=== PATIENT | male | born 1960 | race Caucasian/White ===

== ENCOUNTER → 2020-08-07 07:39 | Outpatient (CLI) | payer OTHER, SELFPAY ==
--- NOTE | ~2020-08-07 | US_ITS ---
EXAMINATION: US abdomen limited DATE: 08/07/2020 08:14 INDICATION: Abnormal liver function tests. TECHNIQUE: Multiple grayscale and Doppler ultrasound images of the abdomen were obtained. COMPARISON: None FINDINGS: The visualized portions of the head, body, and tail of the pancreas are normal. There is di ffuse hepatic steatosis. No liver surface nodularity. There is a 10 mm cyst in the liver. There is no rmal flow in main portal vein. The gallbladder is normal in size and contains a gallstone. No gallbla dder wall thickening or sonographic Davenport sign. The common duct is normal and measures 4 mm. IMPRESSION: 1. Diffuse hepatic steatosis. 2. Cholelithiasis. No evidence of acute cholecystitis. Reviewed, dictated and finalized at location A.
== END ==
PROVIDERS: PCP Internal Medicine; Visit Provider Clinical Nurse Specialist
DX: R74.01 Elevation of levels of liver transaminase levels (principal); K76.0 Fatty (change of) liver, not elsewhere classified; K80.20 Calculus of gallbladder without cholecystitis without obstruction
CPT/HCPCS: 76705

== ENCOUNTER 2022-05-05 09:19 | Outpatient (CLI) | payer MEDICARE, SELFPAY ==
[2022-05-05 19:50] LABS: Basophils Absolute Auto 0.1 K/mm3 (0.0-0.1); Basophils Percent Auto 0.9 % (0.2-1.2); Eosinophils Absolute Auto 0.3 K/mm3 (0-0.3); Hematocrit 45.4 % (42.0-52.0); Hemoglobin 15.5 g/dL (14.0-18.0); Immature Granulocyte Absolute 0.01 K/mm3 (0.00-0.031); Immature Granulocyte Percent A 0.2 % (0-0.5); Lymphocytes Absolute Auto 1.53 K/mm3 (0.9-3.2); Lymphocytes Percent Auto 28.5 % (18.3-44.2); Mean Corpuscular HGB Conc 34.1 g/dl (32-36); Mean Corpuscular Volume 84.9 fl (80-100); Mean Platelet Volume 10.7 fl (7.4-10.4); Monocytes Absolute Auto 0.5 K/mm3 (0.1-0.6); Monocytes Percent Auto 8.8 % (2.6-8.5); Neutrophils Percent Auto 56.6 % (45.5-73.1); Platelet Count Result 218 k/mm3 (150-375); Red Blood Count 5.35 M/mm3 (4.6-6.20); Red Cell Distribution Width 12.2 % (11.5-14.5); White Blood Count 5.4 K/mm3 (4.5-10.0)
[2022-05-05 20:00] LABS: Alanine Aminotransferase 33 U/L (6-50); Albumin Level 4.2 g/dL (3.5-5.1); Alkaline Phosphatase 57 U/L (38-126); Anion Gap 6 mmol/L (8-16); Aspartate Amino Transferase 34 U/L (17-59); Bilirubin,Total 0.7 mg/dL (0.2-1.3); Blood Urea Nitrogen 17 mg/dL (9-20); Calcium 8.8 mg/dL (8.4-10.2); Carbon Dioxide 31 mmol/L (22-30); Chloride 103 mmol/L (98-107); Cholesterol 156 mg/dL (0-200); Estimated Glomerular Filt Rate > 60; Glucose 85 mg/dL (65-110); HDL Direct 48 mg/dL; Potassium 4.2 mmol/L (3.4-5.0); Sodium 140 mmol/L (137-145); Triglycerides 78 mg/dL (<150)
[2022-05-05 20:11] LABS: LDL Cholesterol Direct 74 mg/dL
[2022-05-05 20:29] LABS: Prostate Specific Antigen 2.5 ng/mL (< OR = 4.0)
== END 2022-05-05 09:20 | disposition home or self-care (01) ==
LOC: ANHGOSHLAB 09:21
PROVIDERS: PCP Internal Medicine; Visit Provider Nurse Practitioner
DX: R20.0 Anesthesia of skin (principal); R20.2 Paresthesia of skin; Z12.5 Encounter for screening for malignant neoplasm of prostate; Z13.220 Encounter for screening for lipoid disorders
CPT/HCPCS: 36415; 80053; 80061; 82728; 84153; 84443; 85025; G0103

== ENCOUNTER 2022-06-29 00:34 | Day surgery (SDC) | payer MEDICARE, SELFPAY ==
[2022-06-13 11:56] VITALS: BMI 28.3
[2022-06-29 07:24] VITALS: BP 101/81; PULSE 100; RESP 18; TEMP 36.1; O2SAT 100
[2022-06-29] MEDS: LACTATED RINGERS 1,000 ML 150 ML IV CONT (07:45)
--- NOTE | 2022-06-29 08:17 | WPDANESEPPF ---
Anes - Initial Pre Proc Eval Procedure: Operation Date: 06/29/22 08:30 Proposed Procedures p Screening Colonoscopy - Param Dumont MD Date/Time: 06/29/22 08:17 Surgeon: Param Dumont MD Pre Op Diagnosis: neoplasm screening Patient Data Age: 61 Gender: M Height: 1.88 m Weight: 99.6 kg Last Vital Signs Temp 97 F L 06/29/22 07:24 Pulse 100 06/29/22 07:24 Resp 18 06/29/22 07:24 BP 101/81 06/29/22 07:24 Pulse Ox 100 06/29/22 07:24 O2 Del Method Room Air 06/29/22 07:24 Allergies Allergy/AdvReac Type Severity Reaction Status Date / Time chlorhexidine AdvReac Mild Rash Verified 06/29/22 07:23 [From ChloraPrep Clear] isopropyl alcohol AdvReac Mild Rash Verified 06/29/22 07:23 [From ChloraPrep Clear] Home Medications Medication Instructions Recorded Confirmed Type albuterol sulfate 90 mcg/actuation 2 inhalation inhalation Q4-6H PRN 04/29/19 06/29/22 History breath activated powder inhaler Shortness Of Breath (ProAir RespiClick) misoprostol 100 mcg tablet 100 mcg PO QID #360 tabs 09/09/21 06/29/22 Rx celecoxib 200 mg capsule (Celebrex) 200 mg PO DAILY #90 caps 12/21/21 06/29/22 Rx ascorbic acid (vitamin C) 1,000 mg 1 g PO DAILY 05/12/22 06/29/22 History capsule elderberry fruit 350 mg capsule 350 mg PO DAILY 05/12/22 06/29/22 History fluticasone propionate 50 2 spray intranasal DAILY PRN 05/12/22 06/29/22 History mcg/actuation nasal Allergy Symptoms spray,suspension (Flonase Allergy Relief) Patient hx anesthesia problems: none Family hx anesthesia problems: none Results Review: All pre-operative results and documents have been reviewed as part of the pre-operative evaluation. [facility] Past Medical History Medical History (Updated 05/12/22 @ 09:20 by Esther Son NP) Allergies Anxiety Arthralgia COPD (chronic obstructive pulmonary disease) Dizziness Insomnia Lipoma removed 2021 from left knee Lipoma of back removed spring 2021 Overweight Rotator cuff tear Left 2008 Vertigo Surgical History Surgical History H/O arthroscopic knee surgery Right 2002 H/O foot surgery History of carpal tunnel release 2010 History of hand surgery S/P hip arthroscopy Left 2004 Family History Family History Father Diabetes mellitus Mother Family history of Alzheimer's disease Social History Social History (Updated 05/12/22 @ 08:37 by Brittany Salazar CMA) Social History: Caffeine-none Smoking status: Former smoker Smoking end date: 05/01/82 Alcohol intake: current Drinks per week: 4 Alcohol use details: Pt drinks occasionally. Substance use type: does not use Lack of Transportation: No Lack of Food: Never True Current Housing: I Have Housing Concerned About Future Housing: No Difficulty Paying Gas/Electric Bills: No Difficulty Paying for Meds: No Currently Unemployed: No Education: Trade/Vocational Certificate Difficulty w/ Childcare or Family Care: No Living arrangements: with family Spiritual care concerns: No Anes - Eval Final PreProcedure Day of Procedure 06/29/22 08:17 Patient weight: normal Heart: regular rate and rhythm Lungs: clear to auscultation Airway: Mallampati scale class II Neurological: alert and oriented Last oral intake: >/= 8 hours ASA classification: II Emergent: no Anesthetic plan: proceed Anesthesia type and monitoring: general GIVS and standard monitoring Results Review: All pre-operative results and documents have been reviewed as part of the pre-operative evaluation. Informed Consent: The patient's anesthetic plan and its attendant risks and benefits were discussed with the patient/family/POA. Questions were solicited and answers provided to the satisfaction of the patient/family/POA.
--- NOTE | 2022-06-29 08:21 | PM.HPGS ---
History of Present Illness History of Present Illness Consent: Risks, benefits, and alternatives have been discussed and questions answered. Patient agrees to proceed with procedure. Chief complaint: neoplasm screening Narrative: Anish Nolasco Jr. is a 61 year old male with last screening colonoscopy 10 years ago Review of Systems Constitutional: Constitutional: Denies headache(s) and Denies weakness Eyes: Eyes: Denies blurry vision ENT: Reports Normal hearing present, Denies headache(s) and Denies neck pain Cardiovascular: Cardiovascular: Denies chest pain and Denies dyspnea Respiratory: Respiratory: Denies dyspnea Gastrointestinal: Gastrointestinal: Reports no additional gastrointestinal complaints Genitourinary: Genitourinary: Denies dysuria Musculoskeletal: Musculoskeletal: Denies neck pain Integumentary/Breasts: Skin/Breast: Denies dry skin Neurologic: Reports Normal hearing present, Denies headache(s) and Denies weakness Psychiatric: Psychiatric: Denies anxiety Endocrine: Endocrine: Denies change in body appearance Hematologic/Lymphatic: Hematologic/Lymphatic: Denies easy bleeding Allergic/Immunologic: Allergic/Immunologic: Denies urticaria PMFSH Past Medical History Medical History (Updated 05/12/22 @ 09:20 by Esther Son NP) Allergies Anxiety Arthralgia COPD (chronic obstructive pulmonary disease) Dizziness Insomnia Lipoma removed 2021 from left knee Lipoma of back removed spring 2021 Overweight Rotator cuff tear Left 2008 Vertigo Surgical History Surgical History H/O arthroscopic knee surgery Right 2002 H/O foot surgery History of carpal tunnel release 2010 History of hand surgery S/P hip arthroscopy Left 2004 Family History Family History Father Diabetes mellitus Mother Family history of Alzheimer's disease Social History Social History (Updated 05/12/22 @ 08:37 by Brittany Salazar [facility]) Social History: Caffeine-none Smoking status: Former smoker Smoking end date: 05/01/82 Alcohol intake: current Drinks per week: 4 Alcohol use details: Pt drinks occasionally. Substance use type: does not use Lack of Transportation: No Lack of Food: Never True Current Housing: I Have Housing Concerned About Future Housing: No Difficulty Paying Gas/Electric Bills: No Difficulty Paying for Meds: No Currently Unemployed: No Education: Trade/Vocational Certificate Difficulty w/ Childcare or Family Care: No Living arrangements: with family Spiritual care concerns: No Meds Home Medications and Allergies Home Medications Medication Instructions Recorded Confirmed Type albuterol sulfate 90 mcg/actuation 2 inhalation inhalation Q4-6H PRN 04/29/19 06/29/22 History breath activated powder inhaler Shortness Of Breath (ProAir RespiClick) misoprostol 100 mcg tablet 100 mcg PO QID #360 tabs 09/09/21 06/29/22 Rx celecoxib 200 mg capsule (Celebrex) 200 mg PO DAILY #90 caps 12/21/21 06/29/22 Rx ascorbic acid (vitamin C) 1,000 mg 1 g PO DAILY 05/12/22 06/29/22 History capsule elderberry fruit 350 mg capsule 350 mg PO DAILY 05/12/22 06/29/22 History fluticasone propionate 50 2 spray intranasal DAILY PRN 05/12/22 06/29/22 History mcg/actuation nasal Allergy Symptoms spray,suspension (Flonase Allergy Relief) Allergies Allergy/AdvReac Type Severity Reaction Status Date / Time chlorhexidine AdvReac Mild Rash Verified 06/29/22 07:23 [From ChloraPrep Clear] isopropyl alcohol AdvReac Mild Rash Verified 06/29/22 07:23 [From ChloraPrep Clear] Vital Signs Vital Signs - 24 hr 06/29/22 07:24 Temperature 97 F L Pulse Rate 100 Respiratory Rate 18 Blood Pressure 101/81 Pulse Oximetry 100 Oxygen Delivery Room Air Exam Const: General: comfortable and no acute distress HENMT: Face/Nose/Sinus:
[2022-06-29 08:41] VITALS: BP 102/71; PULSE 79; RESP 18; O2SAT 100
[2022-06-29 08:51] VITALS: BP 106/72; PULSE 80; RESP 18; O2SAT 100
[2022-06-29 09:01] VITALS: BP 106/78; PULSE 88; RESP 19; O2SAT 99
== END 2022-06-29 09:17 | disposition home or self-care (01) ==
PROVIDERS: PCP Internal Medicine; Visit Provider Internal Medicine Gastroenterology
PROC: 0DJD8ZZ Inspection of Lower Intestinal Tract, Via Natural or Artificial Opening Endoscopic (ICD-10-PCS; CPT 45378; principal; 2022-06-29 08:30)
DX: Z12.11 Encounter for screening for malignant neoplasm of colon (principal); K64.8 Other hemorrhoids; J44.9 Chronic obstructive pulmonary disease, unspecified; Z79.51 Long term (current) use of inhaled steroids; Z87.891 Personal history of nicotine dependence
CPT/HCPCS: G0121; J2704; J7120

== ENCOUNTER 2022-08-12 07:59 | Outpatient (CLI) | payer MEDICARE, SELFPAY ==
--- NOTE | 2022-08-29 17:57 | WPDHOMESLEEP ---
Sleep Study - Home Unattended Date of Study: 08/12/22 Ordering Provider: Nola Florence DO Interpreting Provider: Nola Florence DO Home Sleep Study Type: Watch PAT Height: 1.88 m Weight: 102.058 kg Body Mass Index: 28.8 Neck Circumference (inches): 17.5 Pope: 2 Reason for Sleep Study Daytime hypersomnia Sleep History The patient is a 61-year-old male with anxiety, arthritis, COPD, insomnia, history of tobacco use and previously diagnosed BRAXTON that had a sleep study ordered for evaluation sleep apnea. The patient denies awakening from sleep short of breath. He denies awakening at night with heartburn, belching or cough. He occasionally snores and is occasionally loud enough that others complain. He occasionally has trouble sleeping when he has a cold. He denies waking up gasping for air throughout the night. He rarely has breathing problems at night observed by himself or others. He denies sweating excessively at night. He denies having heart palpitations or irregular heartbeats during the night. He occasionally falls asleep during the day but never while driving. He denies sleep paralysis and cataplexy. He rarely has trouble at school or work due to sleepiness. He rarely experiences vivid dreamlike scenes upon awakening or falling asleep. He denies feeling afraid of going to sleep. He rarely has nightmares. He rarely remembers his dreams. He rarely has thoughts racing through his mind. He denies feeling sad, depressed or anxious. He denies having muscular tension. He denies noticing parts of his body jerk. He denies kicking during the night. He denies having crawling and aching feelings in his legs and denies having leg pain during the night. He rarely grinds his teeth during sleep and never awakens with morning jaw pain. He is rarely bothered by pain during the day and rarely awakened by pain during the night. He occasionally wakes up feeling stiff in the morning. He denies waking up with sore or achy muscles. He occasionally wakes up with pain in the neck, spine or other joints. He goes to bed at 9:30 p.m. on both weekdays and weekends. It takes him 5-10 minutes to fall asleep. He wakes up 5-7 times throughout the night for unknown reasons. He can take him anywhere from 5 minutes up to an hour to fall back asleep. He wakes up at 2:00 a.m. on both weekdays and weekends. He typically gets 7-8 hours of sleep per night. He will stay in bed for 5 minutes after waking up in morning. He currently lives with his daughter and granddaughter. He denies consuming any caffeinated beverages within 2 hours of bedtime. He denies engaging in physical exercise before bedtime. He will watch television before falling asleep. He will take naps in the afternoon or the evening and they are refreshing. He does not consume any caffeinated beverages throughout the day. He is a former smoker. He consumes 3-4 alcoholic beverages per week. He denies recreational drug use. [facility] Past Medical History Medical History Allergies Anxiety Arthralgia COPD (chronic obstructive pulmonary disease) Dizziness Insomnia Lipoma removed 2021 from left knee Lipoma of back removed spring 2021 Overweight Rotator cuff tear Left 2008 Vertigo Surgical History Surgical History H/O arthroscopic knee surgery Right 2002 H/O foot surgery History of carpal tunnel release 2010 History of hand surgery S/P hip arthroscopy Left 2004 Family History Family History Father Diabetes mellitus Mother Family history of Alzheimer's disease Social History Social History Social History: Caffeine-none Smoking status: Former smoker Smoking end date: 05/01/82 Alcohol intake: current Drinks per week: 4
[2022-08-30 17:06] VITALS: BMI 28.8
--- NOTE | 2023-03-20 15:47 | SLEEP ---
pt turned machine back in to dme
== END 2022-08-15 08:59 | disposition home or self-care (01) ==
LOC: ANHCSM 08:03
PROVIDERS: PCP Internal Medicine; Visit Provider Family Medicine
DX: G47.33 Obstructive sleep apnea (adult) (pediatric) (principal); G47.9 Sleep disorder, unspecified; Z87.891 Personal history of nicotine dependence
CPT/HCPCS: 95800

== ENCOUNTER 2023-01-04 23:34 | Inpatient (IN) | payer MEDICARE, SELFPAY ==
--- NOTE | ~2023-01-04 | XR_ITS ---
EXAMINATION: XR ERCP DATE: 01/06/2023 12:42 INDICATION: Choledocholithiasis. TECHNIQUE: 1 spot fluoroscopic image of the right upper quadrant were obtained during endoscopic retr ograde cholangiopancreatography (ERCP). Fluoroscopy exposure time was 91 seconds. COMPARISON: Cholangiogram 01/05/23 FINDINGS: The endoscope is in the second portion the duodenum. There is contrast opacification of the common duct. There are surgical clips from cholecystectomy. IMPRESSION: 1. Contrast opacification of the common duct. Please refer to the ERCP procedure note for additional details. Reviewed, dictated and finalized at location A. IMPRESSION: 1. Contrast opacification of the common duct. Please refer to the ERCP procedur e note for additional details.
--- NOTE | ~2023-01-04 | CT_ITS ---
CT of the Abdomen and Pelvis: Indication: Abnormal LFTs Technique: 2.5 mm axial scans were obtained through the abdomen and pelvis following intravenous adm inistration of 100 cc of Omnipaque 350. Dose reduction technique was used on this scan by utilizing a utomated exposure control and iterative reconstruction technique. The dose-length product (DLP) was 7 52.28 mGy-cm. Findings: Scans through the lung bases demonstrate an 8 mm somewhat tubular nodule at the left lung base, possibly focally dilated vessel. Several subcentimeter hepatic cysts are present. There is mild gallbladder wall thickening with diste nded gallbladder. The spleen, pancreas, adrenals and kidneys are within normal limits. No evidence o f aortic aneurysm. No lymphadenopathy. No bowel obstruction or bowel wall thickening. There is no evidence to suggest acute appendicitis. Images through the pelvis were performed. Urinary bladder unremarkable. Prostate gland and seminal ve sicles are unremarkable. Impression: Distended gallbladder with mild gallbladder wall thickening. Appearance suggests acute cholecystitis. Correlate clinically. Consider ultrasound and/or HIDA scan for further evaluation. Subcentimeter hepatic cysts. 8 mm somewhat tubular nodule at the left lung base, possibly a focally dilated vascular structure. Ap pearance suggests a benign lesion. Nonemergent CT angiogram could be considered to more definitively exclude small pulmonary AVM. Reviewed, dictated and finalized at [facility]. Impression: Distended gallbladder with mild gallbladder wall thickening. Appearance suggest s acute cholecystitis. Correlate clinically. Consider ultrasound and/or HIDA sc an for further evaluation. Subcentimeter hepatic cysts. 8 mm somewhat tubular nodule at the left lung base, possibly a focally dilated vascular structure. Appearance suggests a benign lesion. Nonemergent CT angiogr am could be considered to more definitively exclude small pulmonary AVM.
--- NOTE | ~2023-01-04 | XR_ITS ---
EXAMINATION: XR cholangiogram surg 1st inj DATE: 01/05/2023 15:49 INDICATION: Acute cholecystitis. TECHNIQUE: 195 fluoroscopic images of the right upper quadrant were obtained during intraoperative ch olangiography performed by the surgeon. I was not present in the operating room. Fluoroscopy exposure time was 30 seconds. COMPARISON: CT abdomen and pelvis 01/05/23 FINDINGS: There is a catheter in the cystic duct. There are 2 or 3 stones in the distal common bile d uct measuring up to at least 4 mm. The common duct is mildly dilated. Contrast passes to the duodenum . IMPRESSION: 1. Choledocholithiasis. Reviewed, dictated and finalized at location E. IMPRESSION: 1. Choledocholithiasis.
[2023-01-05] VITALS (31 sets, daily range): BP systolic 112–148; BP diastolic 50–89; PULSE 71–93; RESP 11–21; TEMP 36.2–37.1; O2SAT 94–100
[2023-01-05 00:53] LABS: Basophils Percent Auto 0.2 % (0.2-1.2); Eosinophils Absolute Auto 0.1 K/mm3 (0-0.3); Eosinophils Percent Auto 0.5 % (0-4.4); Hemoglobin 16.8 g/dL (14.0-18.0); Immature Granulocyte Absolute 0.02 K/mm3 (0.00-0.031); Immature Granulocyte Percent A 0.2 % (0-0.5); Lymphocytes Absolute Auto 0.96 K/mm3 (0.9-3.2); Mean Corpuscular Hemoglobin 29.3 pg (26-34); Mean Corpuscular Volume 83.8 fl (80-100); Mean Platelet Volume 10.1 fl (7.4-10.4); Monocytes Absolute Auto 0.6 K/mm3 (0.1-0.6); Monocytes Percent Auto 5.9 % (2.6-8.5); Neutrophils Percent Auto 83.2 % (45.5-73.1); Platelet Count Result 221 k/mm3 (150-375); Red Blood Count 5.73 M/mm3 (4.6-6.20); White Blood Count 9.6 K/mm3 (4.5-10.0)
[2023-01-05 00:54] LABS: Appearance Urine Clear (Clear); Bilirubin Urine Negative (Negative); Blood Urine Negative (Negative); Color Urine Yellow (Yellow); Glucose Urine UA Negative (Negative); Ketones Urine Trace mg/dL (Negative); Leukocyte Esterase Ur Negative LEU/UL (Negative); Nitrate Urine Negative (Negative); Protein Urine Negative (Negative); Specific Grav Ur 1.004 (1.001-1.035); Urobilinogen Urine 0.2 mg/dL (<2.0); pH Urine 8.5 (5.0-9.0)
[2023-01-05 00:58] LABS: Add Urine Microscopic? NO
[2023-01-05 01:07] LABS: Alanine Aminotransferase 674 U/L (6-50); Albumin Level 4.8 g/dL (3.5-5.1); Alkaline Phosphatase 99 U/L (38-126); Anion Gap 9 mmol/L (8-16); Aspartate Amino Transferase 667 U/L (17-59); Bilirubin,Total 4.3 mg/dL (0.2-1.3); Blood Urea Nitrogen 11 mg/dL (9-20); Calcium 9.7 mg/dL (8.4-10.2); Carbon Dioxide 26 mmol/L (22-30); Chloride 101 mmol/L (98-107); Estimated CRCL calculation 88 ml/min; Estimated Glomerular Filt Rate > 60; Glucose 148 mg/dL (65-110); Lipase 92 U/L (23-300); Potassium 3.7 mmol/L (3.4-5.0); Sodium 136 mmol/L (137-145)
--- NOTE | 2023-01-05 07:17 | PC.NURSE ---
Patient report received from JARED Ribeiro. ALl questions answered and care of patient assumed.
--- NOTE | 2023-01-05 07:17 | ED.ABDPAIN ---
HPI - Abdominal Pain General Chief Complaint: Abdominal Pain Stated Complaint: right upper abd pain Time Seen by Provider: 01/05/23 05:26 Source: patient Mode of arrival: ambulatory Limitations: no limitations History of Present Illness HPI narrative: 62 years old white male drove himself to the emergency room because of pain at the right upper quadrant that started yesterday morning after breakfast. Patient did not eat since. Associated with nausea. Worse with laying down on the right side, nothing make it better. No history of abdominal surgery. History of arthritis currently on Celebrex. Patient does not smoke or uses drugs, drinks occasionally. Does not take any antiplatelet or anticoagulant medication. Related Data Home Medications Medication Instructions Recorded Confirmed albuterol sulfate 90 mcg/actuation 2 inhalation inhalation Q4-6H PRN 04/29/19 12/08/22 breath activated powder inhaler Shortness Of Breath (ProAir RespiClick) ascorbic acid (vitamin C) 1,000 mg 1 g PO DAILY 05/12/22 12/08/22 capsule elderberry fruit 350 mg capsule 350 mg PO DAILY 05/12/22 12/08/22 fluticasone propionate 50 2 spray intranasal DAILY PRN 05/12/22 12/08/22 mcg/actuation nasal Allergy Symptoms spray,suspension (Flonase Allergy Relief) Allergies Allergy/AdvReac Type Severity Reaction Status Date / Time chlorhexidine AdvReac Mild Rash Verified 12/08/22 10:54 [From ChloraPrep Clear] isopropyl alcohol AdvReac Mild Rash Verified 12/08/22 10:54 [From ChloraPrep Clear] Review of Systems Review of Systems: All systems reviewed & are unremarkable except as noted in HPI and below PMFSH Past Medical History Medical History Allergies Anxiety Arthralgia COPD (chronic obstructive pulmonary disease) Dizziness Insomnia Lipoma removed 2021 from left knee Lipoma of back removed spring 2021 Overweight Rotator cuff tear Left 2008 Vertigo Surgical History Surgical History H/O arthroscopic knee surgery Right 2002 H/O foot surgery History of carpal tunnel release 2010 History of hand surgery S/P hip arthroscopy Left 2004 Family History Family History Father Diabetes mellitus Mother Family history of Alzheimer's disease Social History Social History Social History: Caffeine-none Smoking status: Former smoker Smoking end date: 05/01/82 Alcohol intake: current Drinks per week: 4 Alcohol use details: Pt drinks occasionally. Substance use type: does not use Lack of Transportation: No Lack of Food: Never True Current Housing: I Have Housing Concerned About Future Housing: No Difficulty Paying Gas/Electric Bills: No Difficulty Paying for Meds: No Currently Unemployed: No Education: Trade/Vocational Certificate Difficulty w/ Childcare or Family Care: No Living arrangements: with family Spiritual care concerns: No Exam Narrative: General appearance: Well-developed, well-nourished Skin: Normal color Head: Normocephalic, nontraumatic Eyes: Clear conjunctiva ENT: Oropharynx normal, ears normal, nose normal Neck: Supple, nontender Chest and respiratory: Airway patent, no respiratory distress, no accessory muscle use Heart: Regular rate/rhythm Abdomen: Soft, diffuse tenderness right upper quadrant, positive Davenport sign, no organomegaly, quiet bowel sounds Vascular: Normal peripheral pulses, normal capillary refill. Musculoskeletal: Normal range of motion, nontender back Neurologic: Alert and oriented ?3, HIDE CURER is normal as tested, no gross motor deficit
[2023-01-05] MEDS: SODIUM CHLORIDE 0.9% IV 1,000 ML 999 ML IV CONT ×2 (07:34→08:24)
[2023-01-05] MEDS: ONDANSETRON INJ 4 MG/2 ML VIAL IV PUSH (07:34)
[2023-01-05] MEDS: HYDROmorphone HCL INJ (*CRX) 1 MG/ML SYR 0.5 MG IV PUSH (07:35)
[2023-01-05] MEDS: PIPERACILLN/TAZ 3.375GM/NS50ML 3.375 GM/50 ML BAG IVPB ×2 (08:23→14:45)
--- NOTE | 2023-01-05 09:00 | ADMGEN ---
This patient, Anish Nolasco Jr., was admitted to Medical Room 343-01. Patient/family oriented to hospital policies and general routines including ID bracelet, bed and alarms, visiting hours, pain management, procedures, bathroom and other care routines, personal items, smoking policy, room service/diet, and visiting hours. Information on how to activate the Rapid Response Team has been discussed. Patient/Family are encouraged to report perceived risks to care and to ask questions if they do not understand what they are told or what they should do.
--- NOTE | 2023-01-05 09:59 | PM.IMHP ---
H&P: HPI History of Present Illness Date/Time: 01/05/23 09:59 Chief Complaint: Right upper quadrant abdominal pain Narrative: This is a 62-year-old man who presented to the ER early this morning with right upper quadrant abdominal pain x1 day. He woke up yesterday feeling otherwise well, and ate frosted flakes cereal for breakfast. About 2 hours after eating, he developed right upper quadrant abdominal pain. No radiating or alleviating factors. He reports associated nausea, but no vomiting. His abdominal pain persisted through the night and made it difficult to sleep, therefore he came into the ER this morning for evaluation. Labs were significant for total bilirubin 4.3, AST 667, ALT 674, alk-phos 99, and lipase normal. White blood cell count normal. In review of labs, he had normal LFTs in May of [address]22. CT scan of the abdomen and pelvis showed a distended gallbladder with mild gallbladder wall thickening, suggesting acute cholecystitis. No CT evidence of cholelithiasis, but a RUQ ultrasound from 2020 showed cholelithiasis. The patient was given IV Zosyn, Dilaudid, Zofran, and IV fluids in the ER. He was admitted to our service for surgical evaluation of acute cholecystitis. He is now seen on the medical floor. He is still having some abdominal pain this morning, but improved since being in the ER. No more nausea. Denies any acholic stools or jaundice. He does report some dark colored urine yesterday and a few loose stools. No previous abdominal surgeries. With further questioning, he also endorses 3 previous episodes in the past 30 years of ?gallbladder attacks?. He was initially evaluated in the ER with his first attack about 30 years ago and they told him it was his gallbladder. The second two attacks he dealt with at home and they resolved with time. Review of Systems Review of Systems: All systems reviewed & are unremarkable except as noted in HPI and below Constitutional: Constitutional: Reports no additional constitutional complaints, Denies chills, Denies fatigue and Denies fever(s) Eyes: Eyes: Reports no additional eye complaints ENT: Reports system reviewed and no additional complaints, except as documented and Denies dizziness Cardiovascular: Cardiovascular: Reports no additional cardiovascular complaints, Denies chest pain and Denies leg edema Respiratory: Respiratory: Reports no additional respiratory complaints, Denies cough and Denies dyspnea Gastrointestinal: Gastrointestinal: Reports as per HPI, Reports no additional gastrointestinal complaints, Reports abdominal pain, Denies melena, Denies bloating, Denies hematochezia, Denies constipation, Denies diarrhea, Reports loose stools (3 loose stools yesterday), Reports nausea and Denies vomiting Genitourinary: Genitourinary: Reports no additional male genitourinary complaints and Denies dysuria Musculoskeletal: Musculoskeletal: Reports no additional musculoskeletal complaints, Denies abnormal gait and Denies joint swelling Integumentary/Breasts: Skin/Breast: Reports system reviewed and no additional complaints, except as docu and Denies jaundice Neurologic: Reports system reviewed and no additional complaints, except as documented, Denies headache(s), Denies focal weakness, Denies numbness and Denies tingling PMFSH Past Medical History Medical History (Updated 01/05/23 @ 10:17 by RENATA Carlin) Allergies Anxiety Arthralgia Asthma Dizziness Insomnia Lipoma removed 2021 from left knee Lipoma of back removed spring 2021 Overweight Rotator cuff tear Left 2008 Vertigo Surgical History Surgical History H/O arthroscopic knee surgery Right 2002 H/O foot surgery History of carpal tunnel release 2010 History of hand surgery S/P hip arthroscopy Left 2004 Family History Family History Father Diabetes mellitus Mother Family
[2023-01-05] MEDS: LACTATED RINGERS 1,000 ML 150 ML IV CONT (10:06)
[2023-01-05] MEDS: LACTATED RINGERS 1,000 ML 30 ML IV CONT ×3 (13:00→16:14)
--- NOTE | 2023-01-05 13:27 | WPDHPUPDATE1 ---
History and Physical Update Update Date/Time: 01/05/23 13:27 History and Physical has been reviewed, including an updated exam of the patient. There are NO changes in the patient's condition. Risks, benefits, and alternatives have been discussed and questions answered. Patient agrees to proceed with procedure.
--- NOTE | 2023-01-05 14:15 | WPDANESEPPF ---
Anes - Initial Pre Proc Eval Procedure: Operation Date: 01/05/23 14:00 Proposed Procedures p Laparoscopic Cholecystectomy with Intraoperative Cholangiograms - Stevenson Avelar MD Date/Time: 01/05/23 14:15 Surgeon: Stevenson Avelar MD Pre Op Diagnosis: Acute Cholecystitis w Elevated Liver Enzyme Patient Data Age: 62 Gender: M Height: 1.88 m Weight: 101.2 kg Last Vital Signs Temp 97.2 F L 01/05/23 12:40 Pulse 71 01/05/23 12:40 Resp 16 01/05/23 12:40 BP 131/50 L 01/05/23 12:40 Pulse Ox 100 01/05/23 12:40 O2 Del Method Room Air 01/05/23 12:40 Allergies Allergy/AdvReac Type Severity Reaction Status Date / Time chlorhexidine AdvReac Mild Rash Verified 01/05/23 09:10 [From ChloraPrep Clear] Home Medications Medication Instructions Recorded Confirmed Type albuterol sulfate 90 mcg/actuation 2 inhalation inhalation Q4-6H PRN 04/29/19 01/05/23 History breath activated powder inhaler Shortness Of Breath (ProAir RespiClick) ascorbic acid (vitamin C) 1,000 mg 1 g PO DAILY 05/12/22 01/05/23 History capsule elderberry fruit 350 mg capsule 350 mg PO DAILY 05/12/22 01/05/23 History fluticasone propionate 50 2 spray intranasal DAILY PRN 05/12/22 01/05/23 History mcg/actuation nasal Allergy Symptoms spray,suspension (Flonase Allergy Relief) celecoxib 200 mg capsule (Celebrex) 200 mg PO DAILY #90 caps 07/11/22 01/05/23 Rx misoprostol 100 mcg tablet 100 mcg PO QID #360 tabs 07/11/22 01/05/23 Rx Laboratory Tests 01/05/23 01/05/23 00:39 00:47 WBC 9.6 K/mm3 (4.5-10.0) RBC 5.73 M/mm3 (4.6-6.20) Hgb 16.8 g/dL (14.0-18.0) Hct 48.0 % (42.0-52.0) MCV 83.8 fl (80-100) MCH 29.3 pg (26-34) MCHC 35.0 g/dl (32-36) RDW 12.0 % (11.5-14.5) Plt Count 221 k/mm3 (150-375) MPV 10.1 fl (7.4-10.4) Immature Gran % (Auto) 0.2 % (0-0.5) Neut % (Auto) 83.2 H % (45.5-73.1) Lymph % (Auto) 10.0 L % (18.3-44.2) Burnett % (Auto) 5.9 % (2.6-8.5) Eos % (Auto) 0.5 % (0-4.4) Baso % (Auto) 0.2 % (0.2-1.2) Lymph # (Auto) 0.96 K/mm3 (0.9-3.2) Burnett # (Auto) 0.6 K/mm3 (0.1-0.6) Eos # (Auto) 0.1 K/mm3 (0-0.3) Baso # (Auto) 0.0 K/mm3 (0.0-0.1) Abs Immat Gran (auto) 0.02 K/mm3 (0.00-0.031) Absolute Neuts (auto) 8.0 H K/mm3 (1.3-6.7) Absolute Nucleated RBC 0.0 K/mm3 (0.0-0.012) Nucleated RBC % 0.0 % (0.0-0.2) Sodium 136 L mmol/L (137-145) Potassium 3.7 mmol/L (3.4-5.0) Chloride 101 mmol/L (98-107) Carbon Dioxide 26 mmol/L (22-30) Anion Gap 9 mmol/L (8-16) BUN 11 D mg/dL (9-20) Creatinine 0.90 mg/dL (0.7-1.3) Estim Creat Clear Calc 88 ml/min Estimated GFR > 60 (59 - ) Glucose 148 H mg/dL (65-110) Calcium 9.7 mg/dL (8.4-10.2) Total Bilirubin 4.3 H mg/dL (0.2-1.3) AST 667 H U/L (17-59) ALT 674 H U/L (6-50) Alkaline Phosphatase 99 U/L (38-126) Total Protein 8.0 g/dL (6.3-8.2) Albumin 4.8 g/dL (3.5-5.1) Lipase 92 U/L (23-300) Urine Color Yellow (Yellow) Urine Appearance Clear (Clear) Urine pH 8.5 (5.0-9.0) Ur Specific [place] 1.004 (1.001-1.035) Urine Protein Negative mg/dL (Negative) Urine Glucose (UA) Negative mg/dL (Negative) Urine Ketones Trace H mg/dL (Negative) Ur Blood (Man) Negative (Negative) Urine Nitrate Negative (Negative) Urine Bilirubin Negative (Negative) Urine Urobilinogen 0.2 mg/dL (<2.0) Leukocyte Esterase Rfl Negative CATRACHITA/UL (Negative) Patient hx anesthesia problems: none Family hx anesthesia problems: none Results Review: All pre-operative results and documents have been reviewed as part of the pre-operat
[2023-01-05] MEDS: fentaNYL CITRATE INJ (*CRX) 100 MCG/2 ML VIAL 25 MCG IV PUSH ×4 (16:37→17:00)
--- NOTE | 2023-01-05 16:56 | W.PM.PROC2 ---
Procedure Note - Detailed Date of Procedure 01/05/23 Pre-op Diagnosis Acute Cholecystitis w Elevated Liver Enzyme Post-op Diagnosis Other (Choledocholithiasis with cholecystitis and gallstones) Procedure Performed Laparoscopic cholecystectomy with intraoperative cholangiogram Surgeon Stevenson Avelar MD Can Labeler Jamaal VALDERRAMA Anesthesia General and Local (0.5% Marcaine with epinephrine) Indications Patient came to the emergency room today with over 24 hour history of right upper quadrant abdominal pain and nausea. He had rarely had episodes of this type pain in the past but it always went away. This was more severe and was not going away. In the emergency room he was noted to have right upper quadrant tenderness and a positive Davenport sign. His white blood cell count was 9600. His liver function tests were elevated and his total bilirubin was 4.3. CT scan was done and showed acute cholecystitis. Although stones were not seen on CT, he did have an ultrasound in July of 2020 which showed gallstones. He is taken to surgery now for laparoscopic cholecystectomy with intraoperative cholangiogram. Findings Gallbladder was distended and very edematous. The wall was not particularly thickened. There was no hydrops. He did have a very 2 large stone in the distal gallbladder. Liver appeared normal. Although the cystic duct appeared to be of normal size, intraoperative cholangiogram showed at least 2 or 3 filling defects consistent with gallstones in the distal common bile duct. Some contrast did pass into the duodenum but the common bile duct was somewhat dilated. Description of Procedure Patient was taken to surgery and induced into general anesthesia. The abdomen is prepped and draped. Trocars were placed in the usual fashion using applied Medical optical trocars and local anesthetic. A varies needle was used to insufflate the abdomen prior to placement of the initial trocar. The gallbladder did not have any adherent adhesions but was very distended, was greenish in color and quite edematous. A laparoscopic aspirator was used and the gallbladder was decompressed. At this point it was noted there was a large stone in the area of the infundibulum but the stone did appear mobile. The cholecystotomy was closed with a Vicryl endoloop. The gallbladder was then retracted anterosuperiorly. Careful dissection was performed in the cholecystohepatic triangle. Tissues in this area were quite edematous as well. The cystic duct and cystic artery were dissected out carefully. The cystic artery was securely clipped and divided. The distal gallbladder just proximal to the cystic duct was clipped. I then used fine scissors to make an opening in the proximal cystic duct. A cholangiogram catheter was passed into the cystic duct. Cine fluoroscopy was brought into the field. We then obtained a cholangiogram using cine fluoroscopy. Findings were as noted above. I talked with the radiologist after he had looked at the films and agree that there was evidence of at least S2 or 3 stones in the distal common bile duct with some passage of contrast into the duodenum but a mildly dilated common bile duct as well. The cholangiogram catheter was removed. We securely clipped and divided the cystic duct. The gallbladder was retracted anterosuperiorly. The gallbladder was carefully dissected free of its peritoneal attachments to the liver. There was a lot of edema in this section. It was also hypervascular and had more bleeding than usual but this was quickly controlled with cautery. Eventually the gallbladder was dissected completely free from the liver. It was placed in an Endo-Catch bag and retrieved from the 10/11 epigastric trocar site. I had to enlarge the epigastric trocar site to accommodate the very large stone in the gallbladder. I then replaced the 10 11 epigastric trocar and used a towel clip to occlude the skin and subcutaneous. We were then able to re insuff
[2023-01-05] MEDS: PANTOPRAZOLE SODIUM IV 40 MG VIAL IV PUSH (17:43)
[2023-01-05] MEDS: HYDROcodone/acetaminophen (*CRX) 5-325 MG TABLET 1 TAB PO ×2 (17:45→21:53)
[2023-01-05] MEDS: KCL 20 MEQ/D5/0.9% SOD CHL 1,000 ML 100 ML IV CONT (18:20)
[2023-01-06] VITALS (15 sets, daily range): BP systolic 101–144; BP diastolic 59–96; PULSE 78–100; RESP 14–30; TEMP 36.6–37.2; O2SAT 97–100
[2023-01-06] MEDS: HYDROcodone/acetaminophen (*CRX) 5-325 MG TABLET 1 TAB PO ×4 (02:20→20:42)
[2023-01-06] MEDS: KCL 20 MEQ/D5/0.9% SOD CHL 1,000 ML 100 ML IV CONT ×2 (02:21→15:20)
[2023-01-06 05:45] LABS: Hematocrit 42.5 % (42.0-52.0); Hemoglobin 14.4 g/dL (14.0-18.0); Mean Corpuscular HGB Conc 33.9 g/dl (32-36); Mean Corpuscular Hemoglobin 29.1 pg (26-34); Platelet Count Result 171 k/mm3 (150-375); Red Blood Count 4.94 M/mm3 (4.6-6.20); Red Cell Distribution Width 12.5 % (11.5-14.5); White Blood Count 11.3 K/mm3 (4.5-10.0)
[2023-01-06 06:01] LABS: Potassium 3.6 mmol/L (3.4-5.0)
[2023-01-06 06:02] LABS: Alanine Aminotransferase 706 U/L (6-50); Albumin Level 3.6 g/dL (3.5-5.1); Alkaline Phosphatase 117 U/L (38-126); Anion Gap 9 mmol/L (8-16); Aspartate Amino Transferase 353 U/L (17-59); Bilirubin,Total 2.3 mg/dL (0.2-1.3); Blood Urea Nitrogen 9 mg/dL (9-20); Calcium 8.2 mg/dL (8.4-10.2); Carbon Dioxide 26 mmol/L (22-30); Chloride 104 mmol/L (98-107); Estimated CRCL calculation 73 ml/min; Estimated Glomerular Filt Rate > 60; Glucose 125 mg/dL (65-110); Sodium 139 mmol/L (137-145)
[2023-01-06] MEDS: PANTOPRAZOLE SODIUM IV 40 MG VIAL IV PUSH (08:02)
--- NOTE | 2023-01-06 10:01 | PM.PNGS ---
Progress Note: A&P Assessment and Plan (1) Choledocholithiasis with acute cholecystitis: Code(s): K80.42 - Calculus of bile duct with acute cholecystitis without obstruction Status: Acute Assessment and Plan: Patient doing well after laparoscopic cholecystectomy yesterday. May advance diet after ERCP per Gastroenterology discretion. Patient is scheduled to have ERCP this afternoon per Dr. Trammell. If all goes well, hopefully he can go home tomorrow. Subjective Subjective Date/Time Seen: 01/06/23 10:01 Post Op day: 1 Patient reports: no new complaints, feels better, no bowel movement and afebrile Interval history: No new complaints or problems. To have ERCP this afternoon Exam Const: General: comfortable and no acute distress Orientation/consciousness: patient oriented x3 GI: Inspection: non-distended, incision (Incisions dry and healing well) and scaphoid GI Palp: Yes Soft to palpation, Yes Tenderness to palpation present (GI) (Mild appropriate incisional tenderness), No Guarding due to palpation present (GI) and No Rebound tenderness present Neuro: General: patient oriented x3 and no focal motor deficits Extrem: General: no calf tenderness and no edema Psych: Affect: normal affect Insight: Good insight present (Psych) Judgement: Good judgement present (Psych) Objective Data Vital Signs Vital Signs: Vital Signs - 24 hr 01/05/23 12:40 01/05/23 16:14 01/05/23 16:30 Temperature 36.2 C L 37.1 C Pulse Rate 71 87 79 Respiratory Rate 16 11 L 14 Blood Pressure 131/50 L 148/85 H 128/74 Pulse Oximetry 100 100 100 Oxygen Delivery Room Air Simple Face Mask Room Air Oxygen Flow Rate 8 01/05/23 16:45 01/05/23 17:00 01/05/23 17:20 Temperature 36.7 C Pulse Rate 71 78 77 Respiratory Rate 16 18 16 Blood Pressure 143/82 H 137/89 138/61 Pulse Oximetry 99 100 100 Oxygen Delivery Room Air Room Air Oxygen Flow Rate 01/05/23 17:35 01/05/23 17:30 01/05/23 18:05 Temperature 36.7 C 37.0 C Pulse Rate 76 76 Respiratory Rate 16 16 Blood Pressure 139/83 143/80 H Pulse Oximetry 100 99 Oxygen Delivery Room Air Oxygen Flow Rate 01/05/23 20:10 01/05/23 20:00 01/06/23 00:19 Temperature 37.0 C 37.2 C Pulse Rate 82 82 99 Respiratory Rate 18 18 16 Blood Pressure 147/84 H 114/80 Pulse Oximetry 99 99 97 Oxygen Delivery Room Air Oxygen Flow Rate 01/06/23 04:45 01/06/23 08:00 Temperature 37.1 C Pulse Rate 100 Respiratory Rate 16 Blood Pressure 111/61 Pulse Oximetry 99 Oxygen Delivery Room Air Oxygen Flow Rate Intake/Output Intake/Output: Intake & Output 01/03/23 01/04/23 01/05/23 01/06/23 23:59 23:59 23:59 23:59 Intake Total 3900 1000 Output Total 2200 1650 Balance 1700 -650 Meds/Results Medications: Active Medications Generic Name Dose Route Start Last Admin Trade Name Freq PRN Reason Stop Dose Admin Acetaminophen 500 mg 01/05/23 17:04 Acetaminophen 500 Mg Tablet PO Q6H PRN Mild Pain (1-3) or Fever Hydrocodone Bitart/Acetaminophen 1 tab 01/05/23 17:04 01/06/23 06:42 Hydrocodone/Acetaminophen (*Crx) 5-325 Mg Tablet PO 1 tab Q4H PRN Administration Pain Rated 4-6 Albuterol 2 puff 01/05/23 17:04 Albuterol Sulfate (*Sp) Aerosol 1 Puff INHALATION Q4-6H PRN Shortness Of Breath Ascorbic Acid 1,000 mg 01/06/23 09:00 Ascorbic Acid 500 Mg Tablet PO 02/05/23 08:59 DAILY [facility] Celecoxib 200 mg 01/06/23 09:00 Celecoxib 200 Mg Capsule PO DAILY [facility] Fluticasone Propionate 2 spray 01/05/23 17:04 Fluticasone Propionate 0.05% Na Spr 16 Gm Btl (*Bkc) NASAL DAILY PRN Allergy Symptoms Potassium Chloride/Dextrose/Sod Cl 1,000 mls @ 100 mls/hr 01/05/23 17:04 01/06/23 02:21 Kcl 20 Meq/D5/0.9% Sod Chl IV CONT 100 mls/hr .Q10H LORENZO Administration Morphine Sulfate 2 mg 01/05/23 17:04 Morphine Sulfate (*Crx) 2 Mg/Ml Inj IV PUSH Q2H PRN Pain R
--- NOTE | 2023-01-06 11:17 | PC.NURSE ---
Patient to GI lab per stretcher.
[2023-01-06] MEDS: LACTATED RINGERS 1,000 ML 150 ML IV CONT (11:31)
--- NOTE | 2023-01-06 11:37 | WPDGICN ---
Assessment and Plan Assessment and plan (1) Choledocholithiasis with acute cholecystitis: Code(s): K80.42 - Calculus of bile duct with acute cholecystitis without obstruction Status: Acute Assessment and Plan: s/p lap tyrone he has choledocholithiasis, also had elevated liver enzymes but coming down will proceed with ercp to assess bile duct and treat (2) Elevated liver enzymes: Code(s): R74.8 - Abnormal levels of other serum enzymes Status: Acute Assessment and Plan: continue to trend from cholecystitis/biliary findings (3) RUQ pain: Code(s): R10.11 - Right upper quadrant pain Status: Acute Assessment and Plan: improved (4) Nausea: Code(s): R11.0 - Nausea Status: Acute Assessment and Plan: improved GI Consult Note Consult date/time: 01/06/23 11:37 Reason for consult: cholecystitis, filling defects in bile duct after IOC, elevated liver enzymes HPI: Anish Nolasco Jr. is a 62 year old male admitted with new onset of?right upper quadrant abdominal pain moderate intensity but then unable to sleep, also nausea. Labs were significant for total bilirubin 4.3, AST 667, ALT 674, alk-phos 99, and lipase normal.? White blood cell count normal.?He had normal LFTs in May of 2022.? CT scan of the abdomen and pelvis showed a distended gallbladder with mild gallbladder wall thickening, suggesting acute cholecystitis.The patient was given IV Zosyn, Dilaudid, Zofran, and IV fluids, finally underwent lap tyrone, had cholecystitis and IOC c/w filling defect in bile duct. He is better after surgery, bili down to 2.3. I met patient dominique when he came for screening colonoscopy, recommended to repeat in 10 years. Review of Systems Review of Systems: All systems reviewed & are unremarkable except as noted in HPI and below Constitutional: Constitutional: Denies chills, Denies fatigue and Denies fever(s) Eyes: Eyes: Reports no additional eye complaints ENT: Denies dizziness Cardiovascular: Cardiovascular: Denies chest pain and Denies leg edema Respiratory: Respiratory: Denies cough and Denies dyspnea Gastrointestinal: Gastrointestinal: Reports abdominal pain, Denies diarrhea, Reports nausea and Denies vomiting Genitourinary: Genitourinary: Denies dysuria Musculoskeletal: Musculoskeletal: Denies abnormal gait and Denies joint swelling Integumentary/Breasts: Skin/Breast: Denies rash Neurologic: Denies headache(s), Denies focal weakness, Denies numbness and Denies tingling Psychiatric: Psychiatric: Denies anxiety PMFSH Past Medical History Medical History (Updated 01/06/23 @ 11:41 by Param Dumont MD) Allergies Anxiety Arthralgia Asthma Dizziness Elevated liver enzymes Insomnia Lipoma removed 2021 from left knee Lipoma of back removed spring 2021 Nausea Overweight Rotator cuff tear Left 2008 RUQ pain Vertigo Surgical History Surgical History H/O arthroscopic knee surgery Right 2002 H/O foot surgery History of carpal tunnel release 2010 History of hand surgery S/P hip arthroscopy Left 2004 Family History Family History Father Diabetes mellitus Mother Family history of Alzheimer's disease Social History Social History Social History: Caffeine-none Smoking packs per day: 1 Smoking cigarettes per day: 20.0 Years smoked: 4 Smoking pack-years: 4.00 Smoking status: Former smoker Alcohol intake: current Drinks per week: 4 Alcohol use details: Pt drinks occasionally. Substance use: never Substance use type: does not use Lack of Transportation: No Lack of Food: Never True Current Housing: I Have Housing Concerned About Future Housing: No Difficulty Paying Gas/Electric Bills: No Difficulty Paying for Meds: N
--- NOTE | 2023-01-06 11:37 | WPDANESEPPF ---
Anes - Initial Pre Proc Eval Procedure: Operation Date: 01/05/23 14:00 Proposed Procedures p Laparoscopic Cholecystectomy with Intraoperative Cholangiograms - Stevenson Avelar MD Operation Date: 01/06/23 13:15 Proposed Procedures p Endoscopic Retro Cholangiopancreatogram - Param Dumont MD Date/Time: 01/06/23 11:37 Surgeon: Stevenson Avelar MD Pre Op Diagnosis: Acute Cholecystitis w Elevated Liver Enzyme Patient Data Age: 62 Gender: M Height: 1.88 m Weight: 101.2 kg Last Vital Signs Temp 97.9 F 01/06/23 11:32 Pulse 98 01/06/23 11:32 Resp 18 01/06/23 11:32 BP 104/67 01/06/23 11:32 Pulse Ox 98 01/06/23 11:32 O2 Del Method Room Air 01/06/23 11:32 O2 Flow Rate 8 01/05/23 16:14 Allergies Allergy/AdvReac Type Severity Reaction Status Date / Time chlorhexidine AdvReac Mild Rash Verified 01/05/23 09:10 [From ChloraPrep Clear] Home Medications Medication Instructions Recorded Confirmed Type albuterol sulfate 90 mcg/actuation 2 inhalation inhalation Q4-6H PRN 04/29/19 01/05/23 History breath activated powder inhaler Shortness Of Breath (ProAir RespiClick) ascorbic acid (vitamin C) 1,000 mg 1 g PO DAILY 05/12/22 01/05/23 History capsule elderberry fruit 350 mg capsule 350 mg PO DAILY 05/12/22 01/05/23 History fluticasone propionate 50 2 spray intranasal DAILY PRN 05/12/22 01/05/23 History mcg/actuation nasal Allergy Symptoms spray,suspension (Flonase Allergy Relief) celecoxib 200 mg capsule (Celebrex) 200 mg PO DAILY #90 caps 07/11/22 01/05/23 Rx misoprostol 100 mcg tablet 100 mcg PO QID #360 tabs 07/11/22 01/05/23 Rx oxycodone-acetaminophen 5 mg-325 0.5 - 1 tablet PO Q6H PRN pain #10 01/06/23 Rx mg tablet tabs Laboratory Tests 01/06/23 05:23 WBC 11.3 H K/mm3 (4.5-10.0) RBC 4.94 M/mm3 (4.6-6.20) Hgb 14.4 g/dL (14.0-18.0) Hct 42.5 % (42.0-52.0) MCV 86.0 fl (80-100) MCH 29.1 pg (26-34) MCHC 33.9 g/dl (32-36) RDW 12.5 % (11.5-14.5) Plt Count 171 k/mm3 (150-375) MPV 10.0 fl (7.4-10.4) Sodium 139 mmol/L (137-145) Potassium 3.6 mmol/L (3.4-5.0) Chloride 104 mmol/L (98-107) Carbon Dioxide 26 mmol/L (22-30) Anion Gap 9 mmol/L (8-16) BUN 9 mg/dL (9-20) Creatinine 1.10 mg/dL (0.7-1.3) Estim Creat Clear Calc 73 ml/min Estimated GFR > 60 (59 - ) Glucose 125 H mg/dL (65-110) Calcium 8.2 L mg/dL (8.4-10.2) Total Bilirubin 2.3 H mg/dL (0.2-1.3) AST 353 H U/L (17-59) ALT 706 H U/L (6-50) Alkaline Phosphatase 117 U/L (38-126) Total Protein 6.0 L g/dL (6.3-8.2) Albumin 3.6 g/dL (3.5-5.1) Patient hx anesthesia problems: none Family hx anesthesia problems: none Results Review: All pre-operative results and documents have been reviewed as part of the pre-operative evaluation. [facility] Past Medical History Medical History (Updated 01/06/23 @ 10:04 by Stevenson Avelar MD) Allergies Anxiety Arthralgia Asthma Dizziness Insomnia Lipoma removed 2021 from left knee Lipoma of back removed spring 2021 Overweight Rotator cuff tear Left 2008 Vertigo Surgical History Surgical History H/O arthroscopic knee surgery Right 2002 H/O foot surgery History of carpal tunnel release 2010 History of hand surgery S/P hip arthroscopy Left 2004 Family History Family History Father Diabetes mellitus Mother Family history of Alzheimer's disease Social History Social History Social History: Caffeine-none Smoking packs per day: 1 Smoking cigarettes per day: 20.0 Years smoked: 4 Smoking pack-years: 4.00 Smoking status: Former smoker Alcohol intake: current Drinks per week: 4 Alcohol use detail
[2023-01-06] MEDS: INDOMETHACIN 50 MG SUPP.RECT RECTAL (12:00)
--- NOTE | 2023-01-06 12:26 | SUR.OPER ---
Addendum entered by Jena Lezama RN 01/06/23 12:32: Distal end cap located in pt mouth behind the bite block and removed. Original Note: Distal end cap not present after ERCP. EGD scope used afterward. ERCP end 1220. EGD start 1225
--- NOTE | 2023-01-06 12:30 | WPDANESPN ---
Anes - Prog Note Post-Op Date/Time: 01/06/23 12:30 Cardiovascular status: normal Respiratory status: normal Airway patency: baseline Mental status: baseline Post-Op hydration status: normal Vital Signs: Last Vital Signs Temp 36.6 C 01/06/23 11:32 Pulse 98 01/06/23 11:32 Resp 18 01/06/23 11:32 BP 104/67 01/06/23 11:32 Pulse Ox 98 01/06/23 11:32 O2 Del Method Room Air 01/06/23 11:32 O2 Flow Rate 8 01/05/23 16:14 Pain Score (VAS): Patient asleep. No nonverbal signs of pain present at this time. I/O: Intake & Output 01/05/23 01/06/23 01/06/23 23:59 07:59 15:59 Intake Total 800 1000 Output Total 2200 1300 650 Balance -1400 -300 -650 Laboratory Tests 01/06/23 05:23 01/06/23 05:23 01/06/23 05:23 WBC 11.3 H RBC 4.94 Hgb 14.4 Hct 42.5 MCV 86.0 MCH 29.1 MCHC 33.9 RDW 12.5 Plt Count 171 MPV 10.0 Sodium 139 Potassium 3.6 Chloride 104 Carbon Dioxide 26 Anion Gap 9 BUN 9 Creatinine 1.10 Estim Creat Clear Calc 73 Estimated GFR > 60 Glucose 125 H Calcium 8.2 L Total Bilirubin 2.3 H AST 353 H ALT 706 H Alkaline Phosphatase 117 Total Protein 6.0 L Albumin 3.6 Post-procedural complaints: none Patient Feedback: Patient satisfied with anesthetic care.
[2023-01-06] MEDS: ASCORBIC ACID 500 MG TABLET 1000 MG PO (13:56)
[2023-01-07] MEDS: HYDROcodone/acetaminophen (*CRX) 5-325 MG TABLET 1 TAB PO ×2 (01:15→05:24)
[2023-01-07] MEDS: KCL 20 MEQ/D5/0.9% SOD CHL 1,000 ML 100 ML IV CONT (01:16)
[2023-01-07 04:59] VITALS: BP 131/66; PULSE 88; RESP 16; TEMP 36.9; O2SAT 98
--- NOTE | 2023-01-07 07:53 | WPDANESPN ---
Anes - Prog Note Post-Op Date/Time: 01/07/23 07:53 Cardiovascular status: normal Respiratory status: normal Airway patency: baseline Mental status: baseline Post-Op hydration status: normal Vital Signs: Last Vital Signs Temp 36.9 C 01/07/23 04:59 Pulse 88 01/07/23 04:59 Resp 16 01/07/23 04:59 BP 131/66 01/07/23 04:59 Pulse Ox 98 01/07/23 04:59 O2 Del Method Room Air 01/06/23 20:00 O2 Flow Rate 2 01/06/23 13:03 Pain Score (VAS): 2 I/O: Intake & Output 01/06/23 01/06/23 01/07/23 15:59 23:59 07:59 Intake Total 2848 747 4452 Output Total 1025 1075 1100 Balance 25 -553 250 Laboratory Tests 01/06/23 05:23 01/06/23 05:23 Post-procedural complaints: none Patient Feedback: Patient satisfied with anesthetic care.
[2023-01-07] MEDS: PANTOPRAZOLE SODIUM IV 40 MG VIAL IV PUSH (08:43)
[2023-01-07] MEDS: CELECOXIB 200 MG CAPSULE PO (08:43)
[2023-01-07] MEDS: ASCORBIC ACID 500 MG TABLET 1000 MG PO (08:43)
[2023-01-07] MEDS: diphenhydrAMINE HCl CAP 25 MG CAPSULE 50 MG PO (09:39)
--- NOTE | 2023-01-07 09:53 | WPDGIPROGNO ---
Progress Note: A&P Assessment and Plan (1) Choledocholithiasis with acute cholecystitis: Code(s): K80.42 - Calculus of bile duct with acute cholecystitis without obstruction Status: Acute Assessment and Plan: Patient with common bile duct gallstones noted after recent cholecystectomy. Underwent successful ERCP and common bile duct gallstone extraction yesterday. Plan to advance diet. Continue to monitor LFTs until resolution. (2) History of laparoscopic cholecystectomy: Code(s): Z90.49 - Acquired absence of other specified parts of digestive tract Status: Acute Assessment and Plan: Patient underwent lap choly with evidence of residual common bile duct gallstone this is now been removed after ERCP yesterday. Surgery following patient. Subjective Date/time seen: 01/07/23 09:53 Interval history: Patient doing well after ERCP sphincterotomy and removal of common bile duct gallstone yesterday. Does complain of a rash in his abdomen which he attributes to skin prep for his recent cholecystectomy. Review of Systems Review of Systems: Review of systems noncontributory. Exam Narrative: Physical exam reveals patient is sitting in chair. Denies specific abdominal pain. Abdominal skin rash noted. Other complaints incisions healing well. Objective Data Vital Signs Vital Signs: Vital Signs - 24 hr 01/06/23 11:32 01/06/23 12:43 01/06/23 12:53 Temperature 97.9 F 98.8 F Pulse Rate 98 94 89 Respiratory Rate 18 22 H 15 Blood Pressure 104/67 144/96 H 127/81 Pulse Oximetry 98 100 100 Oxygen Delivery Room Air Simple Face Mask Simple Face Mask Oxygen Flow Rate 8 4 01/06/23 13:03 01/06/23 13:13 01/06/23 13:23 Temperature Pulse Rate 86 86 88 Respiratory Rate 21 H 24 H 19 Blood Pressure 119/78 121/78 130/67 Pulse Oximetry 100 100 100 Oxygen Delivery Simple Face Mask Room Air Room Air Oxygen Flow Rate 2 01/06/23 13:33 01/06/23 13:43 01/06/23 13:52 Temperature 98.4 F Pulse Rate 92 82 81 Respiratory Rate 30 H 28 H 14 Blood Pressure 137/69 132/77 118/81 Pulse Oximetry 100 100 100 Oxygen Delivery Room Air Room Air Oxygen Flow Rate 01/06/23 17:51 01/06/23 20:34 01/06/23 20:00 Temperature 97.9 F 98.3 F Pulse Rate 81 80 78 Respiratory Rate 16 16 18 Blood Pressure 105/67 105/59 L Pulse Oximetry 98 100 98 Oxygen Delivery Room Air Oxygen Flow Rate 01/07/23 04:59 Temperature 98.4 F Pulse Rate 88 Respiratory Rate 16 Blood Pressure 131/66 Pulse Oximetry 98 Oxygen Delivery Oxygen Flow Rate Intake/Output Intake/Output: Intake & Output 01/04/23 01/05/23 01/06/23 01/07/23 23:59 23:59 23:59 23:59 Intake Total 3900 2572 1350 Output Total 2200 3400 1100 Balance 1700 -828 250 Meds/Results Medications: Active Medications Generic Name Dose Route Start Last Admin Trade Name Freq PRN Reason Stop Dose Admin Acetaminophen 500 mg 01/05/23 17:04 Acetaminophen 500 Mg Tablet PO Q6H PRN Mild Pain (1-3) or Fever Hydrocodone Bitart/Acetaminophen 1 tab 01/05/23 17:04 01/07/23 05:24 Hydrocodone/Acetaminophen (*Crx) 5-325 Mg Tablet PO 1 tab Q4H PRN Administration Pain Rated 4-6 Albuterol 2 puff 01/05/23 17:04 Albuterol Sulfate (*Sp) Aerosol 1 Puff INHALATION Q4-6H PRN Shortness Of Breath Ascorbic Acid 1,000 mg 01/06/23 09:00 01/07/23 08:43 Ascorbic Acid 500 Mg Tablet PO 02/05/23 08:59 1,000 mg DAILY LORENZO Administration Celecoxib 200 mg 01/06/23 09:00 01/07/23 08:43 Celecoxib 200 Mg Capsule PO 200 mg DAILY LORENZO Administration Diphenhydramine HCl 50 mg 01/07/23 09:29 01/07/23 09:39 Diphenhydramine Hcl Cap 25 Mg Capsule PO 50 mg Q6H PRN Administration Itching Fluticasone Propionate 2 spray 01/05/23 17:04 Fluticasone Propionate 0.05% Na Spr 16 Gm Btl (*Bkc) NASAL DAILY PRN Allergy Symptoms Potassium Chloride/Dextrose/Sod Cl 1,00
--- NOTE | 2023-01-07 10:50 | PM.PNGS ---
Progress Note: A&P Assessment and Plan (1) Choledocholithiasis with acute cholecystitis: Code(s): K80.42 - Calculus of bile duct with acute cholecystitis without obstruction Status: Acute Assessment and Plan: Patient is doing well after laparoscopic cholecystectomy and post procedure ERCP to remove common bile duct stone. Tolerating regular diet and is afebrile. Abdomen is benign. He did develop a rash which might be due to a surgical prep. He has responded well to Benadryl to help with the itching. He can be discharged home today. Continue to take Benadryl as needed at home. May also apply some cortisone cream to the rash if needed. Resume all his home medications and follow-up see Dr. Avelar in the office in about 2 weeks. No lifting more than 10 or 15lb for 2 weeks but may shower. Subjective Subjective Date/Time Seen: 01/07/23 10:50 Interval history: Patient is postop day 2. Status post laparoscopic cholecystectomy. Postprocedure day 1 after ERCP and removal common bile duct stone. He is doing very well. Tolerating regular diet. Developed a rash on his trunk which may be due to reaction to the surgical prep or perhaps even IV antibiotics. He had relief with administration of some Benadryl. Exam GI: Other: Abdomen is soft distended port site incisions are healing. No redness or drainage from the port sites. The fine erythematous rash along the central portion the abdomen and the flanks where the surgical prep was placed. Objective Data Vital Signs Vital Signs: Vital Signs - 24 hr 01/06/23 11:32 01/06/23 12:43 01/06/23 12:53 Temperature 36.6 C 37.1 C Pulse Rate 98 94 89 Respiratory Rate 18 22 H 15 Blood Pressure 104/67 144/96 H 127/81 Pulse Oximetry 98 100 100 Oxygen Delivery Room Air Simple Face Mask Simple Face Mask Oxygen Flow Rate 8 4 01/06/23 13:03 01/06/23 13:13 01/06/23 13:23 Temperature Pulse Rate 86 86 88 Respiratory Rate 21 H 24 H 19 Blood Pressure 119/78 121/78 130/67 Pulse Oximetry 100 100 100 Oxygen Delivery Simple Face Mask Room Air Room Air Oxygen Flow Rate 2 01/06/23 13:33 01/06/23 13:43 01/06/23 13:52 Temperature 36.9 C Pulse Rate 92 82 81 Respiratory Rate 30 H 28 H 14 Blood Pressure 137/69 132/77 118/81 Pulse Oximetry 100 100 100 Oxygen Delivery Room Air Room Air Oxygen Flow Rate 01/06/23 17:51 01/06/23 20:34 01/06/23 20:00 Temperature 36.6 C 36.8 C Pulse Rate 81 80 78 Respiratory Rate 16 16 18 Blood Pressure 105/67 105/59 L Pulse Oximetry 98 100 98 Oxygen Delivery Room Air Oxygen Flow Rate 01/07/23 04:59 Temperature 36.9 C Pulse Rate 88 Respiratory Rate 16 Blood Pressure 131/66 Pulse Oximetry 98 Oxygen Delivery Oxygen Flow Rate Intake/Output Intake/Output: Intake & Output 01/04/23 01/05/23 01/06/23 01/07/23 23:59 23:59 23:59 23:59 Intake Total 3900 2572 1350 Output Total 2200 3400 1100 Balance 1700 -828 250 Meds/Results Medications: Active Medications Generic Name Dose Route Start Last Admin Trade Name Freq PRN Reason Stop Dose Admin Acetaminophen 500 mg 01/05/23 17:04 Acetaminophen 500 Mg Tablet PO Q6H PRN Mild Pain (1-3) or Fever Hydrocodone Bitart/Acetaminophen 1 tab 01/05/23 17:04 01/07/23 05:24 Hydrocodone/Acetaminophen (*Crx) 5-325 Mg Tablet PO 1 tab Q4H PRN Administration Pain Rated 4-6 Albuterol 2 puff 01/05/23 17:04 Albuterol Sulfate (*Sp) Aerosol 1 Puff INHALATION Q4-6H PRN Shortness Of Breath Ascorbic Acid 1,000 mg 01/06/23 09:00 01/07/23 08:43 Ascorbic Acid 500 Mg Tablet PO 02/05/23 08:59 1,000 mg DAILY LORENZO Administration Celecoxib 200 mg 01/06/23 09:00 01/07/23 08:43 Celecoxib 200 Mg Capsule PO 200 mg DAILY LORENZO Administration Diphenhydramine HCl 50 mg 01/07/23 09:29 01/07/23 09:39 Diphenhydramine Hcl Cap 25 Mg Capsule PO 50 mg Q6H PRN Administration Itching Fluticasone Propionat
--- NOTE | 2023-01-07 10:55 | PM.DS ---
DS: Admitting Diagnosis Discharge Date January 07, 2023 Admitting Diagnosis Acute cholecystitis secondary to cholelithiasis and elevated liver enzymes. DS: Discharge Diagnosis Discharge Diagnosis (1) Choledocholithiasis with acute cholecystitis: Code(s): K80.42 - Calculus of bile duct with acute cholecystitis without obstruction Status: Acute Assessment and Plan: Resolved after laparoscopic cholecystectomy and ERCP to remove common bile duct stone. (2) Elevated liver enzymes: Code(s): R74.8 - Abnormal levels of other serum enzymes Status: Acute Assessment and Plan: Normalizing after removal common bile duct stone after ERCP. DS: Summary Hospital Course Reason for hospitalization: Acute cholecystitis secondary to cholelithiasis and elevated liver enzymes Hospital Course: Patient can [facility] and then was diagnosed with acute cholecystitis and cholelithiasis. He also had elevated liver enzymes. He was taken to the operating room where he underwent an uncomplicated laparoscopic cholecystectomy. Intraoperative cholangiogram revealed evidence of a common bile duct stone. The patient did well with surgery and was kept in the hospital overnight. GI service was consulted to see the patient and an ERCP was performed with extraction of the common bile duct stone. Patient did very well after all these procedures and tolerated regular diet on the surgical floor. On the day of discharge he did develop a rash on the trunk of his abdomen distributed over the area where the surgical prep was located. Likely had reaction to the surgical prep. He was given Benadryl for symptomatic itching. He was discharged home in improved condition. Status at Discharge Functional status at discharge: independent ambulation Overall status at discharge: patient is progressing back to baseline Time Spent with Patient Time attestation: Total time spent providing and/or coordinating discharge services: Time spent: Less than 30 minutes Exam Const: General: cooperative, comfortable and no acute distress Chest: Chest palpation & inspection: normal inspection of the chest Resp: Effort & Inspection: normal respiratory effort and able to speak in complete sentences Cardio: Rate: regular rate Rhythm: regular rhythm GI: Other: Abdomen is soft and nondistended. Port site incisions are healing well. Fine erythematous rash across the abdomen without any blistering. Skin: General skin exam: rashes (Rash across abdomen. No blistering) Neuro: General: patient oriented x3 Speech: normal speech Motor exam (neuro): 5/5 motor strength present throughout Extrem: General: normal to inspection Psych: Appearance: grossly normal and well kempt DS: Data Data Completed and Pending Pending studies at discharge: Pending at discharge 01/05/23 15:16 Surgical [PTH] Routine Discharge Plan Discharge Attending physician on discharge: Stevenson Avelar Consulting providers: Juan Carlos Huang Discharging Clinician: Francisco Avila Patient Disposition: Home, Self-Care Activity: may shower, no straining and as tolerated Diet: low fat Wound Care Instructions: incision open to air Discharge Instructions: 1. May shower over incisions. Okay to wash incisions with soap. 2. Call office for: -Wound increasingly painful or bleeding -Vomiting -Fever of greater than 101 degrees 3. Expect some blood on dressing and old blood on skin. 4. If no bowel movement for three days, take 1 oz. (30 ml) Milk of Magnesia, if no results, take Fleets enema. 5. No heavy lifting > 15-20 pounds for 2 weeks. 6. No driving for 3 days or while taking narcotic pain medications. 7. Up walking 10-30 minutes three times per day. 8. Resume previous home medications. 9. Follow-up 10-14 days in office for wound check or as previously schedul
== END 2023-01-07 12:49 | disposition home or self-care (01) | DRG 419 ==
LOC: ANHED 01-05 08:40 → ANH3MED 01-05 08:48
PROVIDERS: Internal Medicine Gastroenterology; Student in an Organized Health Care Education/Training Program; Admitting Provider Surgery; Emergency Provider Emergency Medicine; PCP Internal Medicine; Visit Provider Surgery
PROC: 0FT44ZZ Resection of Gallbladder, Percutaneous Endoscopic Approach (ICD-10-PCS; CPT 47562; principal; 2023-01-05 14:00)
PROC: 0FC98ZZ Extirpation of Matter from Common Bile Duct, Via Natural or Artificial Opening Endoscopic (ICD-10-PCS; CPT 43260; principal; 2023-01-06 13:15)
DX: K80.42 Calculus of bile duct with acute cholecystitis without obstruction (principal); J44.9 Chronic obstructive pulmonary disease, unspecified; Z87.891 Personal history of nicotine dependence; G47.33 Obstructive sleep apnea (adult) (pediatric); J45.909 Unspecified asthma, uncomplicated; R74.8 Abnormal levels of other serum enzymes; L76.82 Other postprocedural complications of skin and subcutaneous tissue
CPT/HCPCS: 36415; 71260; 74177; 74300; 74329; 80053; 81003; 83690; 85025; 85027; 88304; 96361; 96374; 96375; 99285; A9270; C1713; C9113; J0330; J1100; J1170; J2250; J2405; J2543; J2704; J3010; J3480; J7030; J7120; Q9966; Q9967

== ENCOUNTER 2023-01-20 07:50 | Outpatient (CLI) | payer MEDICARE, SELFPAY ==
--- NOTE | 2023-01-20 08:13 | ECHO_ITS ---
Patient Info Name: Anish Nolasco Age: 62 years : 1960 Gender: Male Ht: 74 in Wt: 220 lbs BSA: 2.30 m2 HR: 84 bpm BP: 114 / 75 mmHg Heart Rhythm: Sinus Rhythm Technical Quality: Fair Exam Date: 01/20/2023 8:27 AM Exam Location: [facility] Pulmonary Patient Status: Outpatient Admit Date: 01/20/2023 Staff Ordering Physician: Esther Son NP Supervisor Decorating: Glenda Cowan RDCS Attending Provider: Esther Son NP Referring Physician: Huy SILVA; Exam Type: CA echo doppler color flow Study Info Indications R42 - Dizziness and giddiness Complete two-dimensional, color flow and Doppler transthoracic echocardiogram is performed. Summary 1. Complete two-dimensional, color flow and Doppler transthoracic echocardiogram is performed. 2. Left ventricular chamber dimension is normal. 3. Left ventricular systolic function is normal, estimated at 65-70%. 4. The left ventricular diastolic function is grade I diastolic dysfunction. 5. E/e' 6 is not elevated. 6. No pulmonary hypertension, estimated pulmonary arterial systolic pressure is 24 mmHg. Left Ventricle E/e' 6 is not elevated. Left ventricular chamber dimension is normal. Left ventricular systolic function is normal, estimated at 65-70%. The left ventricular diastolic function is grade I diastolic dysfunction. Right Ventricle Right ventricular systolic function is normal and with normal TAPSE 2.0 cm. Right ventricular chamber dimension is normal. Left Atria Left atrial chamber dimension is normal. Right Atria Right atrial chamber dimension is normal. Aortic Valve The aortic valve is trileaflet. There is no aortic valve stenosis. There is no aortic valve regurgitation. Pulmonic Valve There is no pulmonic regurgitation. Mitral Valve There is no mitral valve stenosis. There is no mitral valve regurgitation. Tricuspid Valve There is no tricuspid valve regurgitation. No pulmonary hypertension, estimated pulmonary arterial systolic pressure is 24 mmHg. Pericardium/Pleural There is no pericardial effusion. Inferior Vena Cava Normal inferior vena cava with >50% collapse upon inspiration consistent with normal right atrial pressure, 5 mmHg. Aorta The aortic root size at the sinus of Valsalva is normal. Left Ventricular Outflow Tract Name Value Normal LVOT 2D LVOT Diameter 2.1 cm LVOT Doppler LVOT Peak Gradient 4 mmHg LVOT Mean Gradient 2 mmHg LVOT VTI 17 cm LVOT VTI/AV VTI Ratio 1.0 LVOT Stroke Volume 58 ml LVOT CO 4.2 l/min LVOT CI 1.8 l/min/m2 Pulmonic Valve Name Value Normal RVOT Doppler RVOT Peak Gradient 1 mmHg PV Doppler PV Peak Gradient
--- NOTE | 2023-01-24 16:25 | WPDHOLTEREM ---
Holter/Event Monitor Holter/Event Monitor Date of procedure: 01/20/23 Holter/Event Procedure: 48 Hr Holter Monitor Indications: Dizziness Conclusion: 1. 48 hour holter monitor on 01/20/23. 2. Underlying rhythm is sinus rhythm. HR range 53-146 bpm; average HR 77 bpm. HR at 146 bpm was at 09:43. 3. There are 46 premature supraventricular complexes, 4 supraventricular couplets and 3 supraventricular bigeminy. No supraventricular tachycardia. 4. There is 1 premature ventricular complex. No ventricular tachycardia. 5. No sinoatrial or atrioventricular blocks. No significant pauses greater than 2 seconds. 6. Patient reports symptoms of dizziness which demonstrate sinus rhythm, HR range 68-111 bpm.
== END 2023-01-20 07:51 | disposition home or self-care (01) ==
LOC: ANHCARD 07:51
PROVIDERS: PCP Internal Medicine; Visit Provider Nurse Practitioner
DX: R42 Dizziness and giddiness (principal); R94.31 Abnormal electrocardiogram [ECG] [EKG]
CPT/HCPCS: 93225; 93226; 93306

== ENCOUNTER 2023-05-17 08:01 | Outpatient (CLI) | payer MEDICARE, SELFPAY ==
[2023-05-17 13:11] LABS: Basophils Percent Auto 0.8 % (0.2-1.2); Eosinophils Absolute Auto 0.2 K/mm3 (0-0.3); Eosinophils Percent Auto 3.1 % (0-4.4); Hematocrit 49.6 % (42.0-52.0); Hemoglobin 16.2 g/dL (14.0-18.0); Immature Granulocyte Absolute 0.01 K/mm3 (0.00-0.031); Immature Granulocyte Percent A 0.2 % (0-0.5); Lymphocytes Absolute Auto 1.54 K/mm3 (0.9-3.2); Lymphocytes Percent Auto 29.9 % (18.3-44.2); Mean Corpuscular HGB Conc 32.7 g/dl (32-36); Mean Corpuscular Hemoglobin 28.4 pg (26-34); Mean Platelet Volume 10.7 fl (7.4-10.4); Monocytes Absolute Auto 0.4 K/mm3 (0.1-0.6); Monocytes Percent Auto 8.2 % (2.6-8.5); Neutrophils Percent Auto 57.8 % (45.5-73.1); Platelet Count Result 212 k/mm3 (150-375); Red Cell Distribution Width 12.4 % (11.5-14.5); White Blood Count 5.2 K/mm3 (4.5-10.0)
[2023-05-17 13:35] LABS: Alanine Aminotransferase 52 U/L (6-50); Albumin Level 4.2 g/dL (3.5-5.1); Alkaline Phosphatase 58 U/L (38-126); Anion Gap 8 mmol/L (8-16); Aspartate Amino Transferase 50 U/L (17-59); Bilirubin,Total 0.9 mg/dL (0.2-1.3); Blood Urea Nitrogen 17 mg/dL (9-20); Carbon Dioxide 29 mmol/L (22-30); Chloride 101 mmol/L (98-107); Cholesterol 146 mg/dL (0-200); Estimated Glomerular Filt Rate > 60; Glucose 93 mg/dL (65-110); HDL Direct 47 mg/dL; Sodium 138 mmol/L (137-145); Triglycerides 87 mg/dL (<150)
[2023-05-17 13:49] LABS: LDL Cholesterol Direct 73 mg/dL
[2023-05-17 13:56] LABS: Prostate Specific Antigen 2.2 ng/mL (< OR = 4.0)
[2023-05-17 14:20] LABS: Hemoglobin A1C 5.5 % (<5.7)
== END 2023-05-17 08:02 | disposition home or self-care (01) ==
LOC: ANHGOSHLAB 08:03
PROVIDERS: PCP Internal Medicine; Visit Provider Clinical Nurse Specialist
DX: R73.9 Hyperglycemia, unspecified (principal); Z13.29 Encounter for screening for other suspected endocrine disorder; K76.0 Fatty (change of) liver, not elsewhere classified; Z13.220 Encounter for screening for lipoid disorders; Z12.5 Encounter for screening for malignant neoplasm of prostate
CPT/HCPCS: 36415; 80053; 80061; 83036; 84153; 85025; G0103

== ENCOUNTER 2023-05-29 07:49 | Outpatient (CLI) | payer MEDICARE, SELFPAY ==
--- NOTE | ~2023-05-29 | US_ITS ---
Limited Abdominal Sonogram: Real-time sonographic imaging of the right upper quadrant was performed. Clinical History: Fatty liver Findings: The liver appears echogenic, with no evidence of mass lesion or bile duct dilatation. Main portal vein demonstrates normal direction of flow. The gallbladder is absent, compatible with prior cholecystectomy. The common bile duct measures 4 mm. The visualized pancreas, aorta, and IVC are unr emarkable. Impression: Diffuse fatty infiltration of liver. Reviewed, dictated and finalized at location M. DENSITY FINISHING OPERATOR Impression: Diffuse fatty infiltration of liver.
== END 2023-05-29 07:50 ==
LOC: GOSHIMG 07:50
PROVIDERS: PCP Nurse Practitioner; Visit Provider Nurse Practitioner
DX: K76.0 Fatty (change of) liver, not elsewhere classified (principal)
CPT/HCPCS: 76705

== ENCOUNTER 2023-08-22 06:24 | Emergency (ER) | payer OTHER, MEDICARE, SELFPAY ==
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
[2023-08-22 06:34] VITALS: BP 139/84; PULSE 83; RESP 14; TEMP 36.4; O2SAT 100
[2023-08-22] MEDS: LIDOCAINE 5% PATCH 1 PATCH TRANSDERM (07:33)
[2023-08-22] MEDS: ACETAMINOPHEN 500 MG TABLET 1000 MG PO (07:33)
[2023-08-22 07:49] VITALS: BP 120/100; PULSE 81; RESP 16; O2SAT 99
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
[2023-08-22 08:19] VITALS: BP 129/85; PULSE 75; RESP 16; O2SAT 99
== END 2023-08-22 08:23 | disposition home or self-care (01) ==
PROVIDERS: Emergency Provider Preventive Medicine Aerospace Medicine; PCP Nurse Practitioner
DX: S06.0X0A Concussion without loss of consciousness, initial encounter (principal); M54.12 Radiculopathy, cervical region; R25.2 Cramp and spasm; F41.9 Anxiety disorder, unspecified; J45.909 Unspecified asthma, uncomplicated; V43.52XA Car driver injured in collision with other type car in traffic accident, initial encounter
CPT/HCPCS: 72125; 99284; A9270

== ENCOUNTER 2023-09-29 11:18 | Outpatient (CLI) | payer MEDICARE, SELFPAY ==
[2023-09-29 15:39] LABS: Alanine Aminotransferase 39 U/L (6-50); Albumin Level 4.5 g/dL (3.5-5.1); Alkaline Phosphatase 57 U/L (38-126); Aspartate Amino Transferase 45 U/L (17-59); Bilirubin,Total 0.9 mg/dL (0.2-1.3)
== END 2023-09-29 11:19 | disposition home or self-care (01) ==
LOC: ANHGOSHLAB 11:20
PROVIDERS: PCP Nurse Practitioner; Visit Provider Nurse Practitioner
DX: R74.01 Elevation of levels of liver transaminase levels (principal); K76.0 Fatty (change of) liver, not elsewhere classified
CPT/HCPCS: 36415; 80076